=== PATIENT | male | born 2000 | race Caucasian/White ===

== ENCOUNTER 2022-05-22 09:49 | Emergency (ER) | payer BC, SELFPAY ==
[2022-05-22 09:55] VITALS: BP 141/91; PULSE 95; RESP 20; TEMP 37; O2SAT 98; BMI 35.3
--- NOTE | 2022-05-22 10:49 | CRLHL7_ITS ---
For Patients: As a result of the Century Cures Act, medical imaging exams and procedure reports are released immediately into your electronic medical record. You may view this report before your referring provider. If you have questions, please contact your health care provider. INDICATION: RLE PAIN AND REDNESS HISTORY [] TECHNIQUE Ultrasound of the right lower extremity deep veins using bernardo-scale, color Doppler, and spectral Doppler. COMPARISON lower extremity pain and redness [None.] FINDINGS Right: [Common femoral, femoral, and popliteal veins are patent and compressible with normal response to augmentation. Deep femoral vein is patent and compressible.] [Posterior tibial and peroneal veins are patent and compressible with normal response to augmentation.] [Greater saphenous vein is patent and compressible at the junction with the femoral vein.] - Left: [Common femoral vein is patent and compressible with normal response to augmentation.] IMPRESSION [No right lower extremity DVT.] Dictated by: Anamaria Dhaliwal MD @ 05/22/2022 12:43:17 (Electronically Signed)
[2022-05-22 11:44] VITALS: BP 134/86; PULSE 84; RESP 18; O2SAT 99
[2022-05-22 12:09] LABS: Basophils Absolute Auto 0.02 K/uL (0.00-0.30); Basophils Percent Auto 0.4 % (0.0-3.0); Eosinophils Absolute Auto 0.07 K/uL (0.00-0.50); Eosinophils Percent Auto 1.6 % (0.0-7.0); Hematocrit 39.4 % (37.0-53.0); Hemoglobin* 13.5 gm/dL (13.5-17.5); Immature Granulocytes Abs Auto 0.02 K/uL (0.00-0.30); Lymphocytes Percent Auto 19.1 % (20-44); Mean Corpuscular HGB Conc 34 gm/dL (32-36); Mean Corpuscular Hemoglobin 29 pg (26-34); Mean Corpuscular Volume 85 fL (80-100); Monocytes Percent Auto 17.6 % (0.0-11.0); Neutrophils Absolute Auto 2.74 K/uL (1.7-7.0); Neutrophils Percent Auto 60.9 % (42.0-72.0); Platelet Count* 219 K/uL (140-440); RDW Coefficient of Variation % 11.7 % (11.5-15.5); Red Blood Count 4.63 m/uL (4.30-5.90)
[2022-05-22 12:37] LABS: Slide Review Reflex No
[2022-05-22 12:43] LABS: Creatine Kinase* 160 U/L (54-186)
[2022-05-22 12:46] LABS: C Reactive Protein* 0.8 mg/dL (0.5-1.0)
--- NOTE | 2022-05-22 13:46 | ED.GENADULT ---
HPI - General Adult General Date Seen: 05/22/22 Chief complaint: Extremity Pain/Injury, Lower Stated complaint: Sharp pain in calf, back and arm Time Seen by Provider: 05/22/22 10:33 Source: patient History of Present Illness HPI narrative: Patient is a 22-year-old male who presents for evaluation of pain in multiple areas. He says he 1st noticed problems in his right calf which started to bother him 2 days ago. He denies any trauma to the area. He says it started to bother him after he had been working on his vehicle. Then he noted pain in his left calf. Both her bothering him when he walks, although the right is worse than the left. Today he feels like there is some swelling and redness in the right calf as well. Now he also feels like there is an area in his back that hurts and also in his right arm. He feels like all these areas feel about the same and feels like they are connected. Pain is moderate, he has tried some ibuprofen but the not have a lot of relief with that. Found it hard to sleep last night. He went to his chiropractor who ?cracked his back, but that did not seem to help. He denies any systemic complaints such as fevers, chills, nausea or vomiting. He has not had any chest pain or difficulty breathing. He denies any history of DVT or PE. No family history of DVT/PE that he knows of, but he says both grandparents on his dad side are on blood thinners. He does not really know why. He thinks maybe his dad has been on blood thinners as well. Related Data Home Medications Medication Instructions Recorded Confirmed No Known Home Medications 05/22/22 05/22/22 Previous Rx's Medication Instructions Recorded cephalexin 500 mg capsule 500 mg PO QID #28 cap 05/22/22 Allergies Allergy/AdvReac Type Severity Reaction Status Date / Time No Known Drug Allergies Allergy Verified 05/22/22 09:59 Review of Systems Status of ROS: Reports: 10 or more systems reviewed and unremarkable except as noted in History and below [facility] Social History Smoking Status: Never smoker Do you use any of these nicotine containing products: E-Cigarettes and Smokeless Tobacco Second hand tobacco smoke exposure: Yes How often do you have a drink containing alcohol: monthly or less How many standard drinks containing alcohol do you have on a typical day: 3 or 4 How often do you have six or more drinks on one occasion: Less than monthly AUDIT-C Alcohol total score: 3 Non-prescribed substance use: denies use service: No Exam Narrative: Exam Narrative: Vital signs as noted above. In general, an alert, well-appearing patient. Looks comfortable. Breathing easily. Head: Normocephalic, atraumatic. Eyes: Pupils are equal reactive. Extraocular movements are full. Conjunctivae are normal. ENT: Mucous membranes are moist. Throat is normal. Neck: Supple without lymphadenopathy. Heart: Regular rate and rhythm. No murmur or rub. Lungs: Clear bilaterally. No increased work of breathing, crackles or wheezes. Abdomen: Soft and nontender. No organomegaly. Back: Normal in appearance. No erythema or rashes. Nontender to palpation. Extremities: Left lower extremity is normal. On the right, he has an area of mild erythema which is focal in the right calf. There is tenderness in this area. Mild warmth. Suggestion of a little bit of edema in this area although he does not have pretibial edema or edema in the ankle or foot. Distal CMS normal. Upper extremities are both normal. No areas of erythema or tenderness. Neurologic: Patient is alert and oriented to person and place. Speech is fluent. Face is symmetric. Moves all extremities equally. Affect: Normal. Skin: Warm and dry. Well perfused. Const: Vital Signs, click to edit/add: Vital Signs - 24 hr 05/22/22 09:55 05/22/22 11:44 Temperature 98.6 F Pulse Rate [Left P ulse Oximeter] 95 84 Respiratory Rate 20 18 Blood Pressure [Le ft Upper Arm] 141/91 H 134/86 Pulse Oximetry 98 99 Documenting provider has reviewed patient's vital signs: yes Course Course Hospital Course: Reviewed with him that I am not really able to come up with a process that would link the pain in his right upper extremity, back, and bilateral lower extremities at this time. I did do some labs, CBC shows a normal white blood cell count, CRP, CK are normal. I do not find anything really to suggest that these are an acute myositis or other inflammatory process. He does appear to have an area of an acute inflammatory or infectious process in the right calf however. I did do a Doppler which is read by Radiology as negative for DVT. It is possible that this reflects an area of previous trauma/hematoma or gastrocnemius tear, although he really does not report any injury to that area. The other possibility would be an area of developing cellulitis, and I am going to cover him with antibiotics to cover that possibility. I have asked him to use ibuprofen 3 times daily for the next few days. Will cover with Keflex, and see how he does. If he is worsening for any reason, develops worsening redness, swelling or pain, new symptoms such as fever, he should be seen again. Otherwise anticipate gradual improvement over the next week or so. Primary care follow-up if not improving. Vital Signs Vital signs: Initial Vital Signs Temperature 98.6 F 05/22/22 09:55 Temperature Source Temporal Artery Scan 05/22/22 09:55 Pulse Rate 95 05/22/22 09:55 Respiratory Rate 20 05/22/22 09:55 Blood Pressure 141/91 H 05/22/22 09:55 Blood Pressure Mean 107 05/22/22 09:55 Blood Pressure Position Sitting 05/22/22 09:55 Pulse Oximetry 98 05/22/22 09:55 Oxygen Delivery Method 05/22/22 09:55 Vital Signs Temperature 98.6 F 05/22/22 09:55 Pulse Rate 95 05/22/22 09:55 Respiratory Rate 20 05/22/22 09:55 Blood Pressure 141/91 H 05/22/22 09:55 Pulse Oximetry 98 05/22/22 09:55 Temperature 98.6 F 05/22/22 09:55 Pulse Rate 84 05/22/22 11:44 Respiratory Rate 18 05/22/22 11:44 Blood Pressure 134/86 05/22/22 11:44 Pulse Oximetry 99 05/22/22 11:44 Medical Decision Making Lab Data Labs: Lab Results 05/22/22 05/22/22 Range/Units 12:01 12:01 WBC 4.50 (4.50-11.00) K/uL RBC 4.63 (4.30-5.90) m/uL Hgb 13.5 (13.5-17.5) gm/dL Hct 39.4 (37.0-53.0) % MCV 85 (80-100) fL MCH 29 (26-34) pg MCHC 34 (32-36) gm/dL RDW Coeff of Carie 11.7 (11.5-15.5) % Plt Count 219 (140-440) K/uL Neut % (Auto) 60.9 (42.0-72.0) % Lymph % (Auto) 19.1 L (20-44) % [place] % (Auto) 17.6 H (0.0-11.0) % Eos % (Auto) 1.6 (0.0-7.0) % Baso % (Auto) 0.4 (0.0-3.0) % Neut # (Auto) 2.74 (1.7-7.0) K/uL Lymph # (Auto) 0.90 (0.90-2.90) K/uL [place] # (Auto) 0.80 (0.00-0.90) K/UL Eos # (Auto) 0.07 (0.00-0.50) K/uL Baso # (Auto) 0.02 (0.00-0.30) K/uL Abs Immat Gran (auto) 0.02 (0.00-0.30) K/uL Total Creatine Kinase 160 (54-186) U/L C-Reactive Protein 0.8 (0.5-1.0) mg/dL Discharge Plan Discharge Clinical Impression: Cellulitis Patient Disposition: Home, Self-Care Condition: Stable Instructions: Cellulitis (ED) Additional Instructions: Take antibiotic as instructed. Ice, elevate. Ibuprofen, 2 tablets 3 times daily for pain. Take with food. If you have worsening swelling, redness, pain or new symptoms such as fever, return to the emergency department. Prescriptions: New cephalexin 500 mg capsule 500 mg PO QID Qty: 28 0RF No Action No Known Home Medications 0RF Follow Up/Referrals: Provider,Not a Local [Primary Care Provider] - Stand Alone Forms: [employer] Info Instructions
== END 2022-05-22 13:21 | disposition home or self-care (01) ==
PROVIDERS: Emergency Provider Emergency Medicine
DX: L03.818 Cellulitis of other sites (principal)
CPT/HCPCS: 36415; 82550; 85025; 86140; 93971; 99283; 99284

== ENCOUNTER 2022-05-24 07:53 | Outpatient (CLI) | payer BC, SELFPAY ==
[2022-05-24 13:50] LABS: Albumin* 4.5 g/dL (3.3-5.0); Chloride* 107 mmol/L (96-114)
[2022-05-24 13:51] LABS: Potassium* 4.9 mmol/L (3.6-5.1); Sodium* 138 mmol/L (135-149)
[2022-05-24 13:54] LABS: Alanine Aminotransferase* 52 U/L (4-50); Alkaline Phosphatase* 103 U/L (40-150); Aspartate Amino Transferase* 46 U/L (12-35); Bilirubin Total* 0.4 mg/dL (0.1-1.5); Blood Urea Nitrogen* 11 mg/dL (5-24); Calcium* 9.1 mg/dL (8.4-10.6); Carbon Dioxide* 22 mmol/L (20-32); Creatinine* 0.8 mg/dL (0.5-1.5); Estimated Glomerular Filt Rate 128 ml/min; Glucose* 92 mg/dL (60-115); Total Protein* 7.6 g/dL (6.0-8.3)
[2022-05-24 14:01] LABS: C Reactive Protein* < 0.5 mg/dL (0.5-1.0)
[2022-05-26 18:49] LABS: Anaplasma phagocyt PCR Not Detected; Babesia microti by PCR Not Detected; Babesia species by PCR Not Detected; Ehrlichia chaffeensis by PCR Not Detected; Ehrlichia ewingii/canis by PCR Not Detected; Ehrlichia muris-like by PCR Not Detected
== END 2022-05-24 07:54 | disposition home or self-care (01) ==
PROVIDERS: Visit Provider Family Medicine
DX: L03.90 Cellulitis, unspecified (principal); M79.10 Myalgia, unspecified site
CPT/HCPCS: 80053; 86140; 86618; 87798

== ENCOUNTER 2024-06-30 08:18 | Emergency (ER) | payer BC, SELFPAY ==
[2024-06-30 08:20] VITALS: BP 157/104; PULSE 85; RESP 18; TEMP 36.8; O2SAT 99; BMI 35.3
--- NOTE | 2024-06-30 09:02 | ED.CHESTPAIN ---
HPI - Chest Pain General Chief Complaint: Chest Pain Stated Complaint: intermittent chest pains Time Seen by Provider: 06/30/24 08:27 History of Present Illness HPI narrative: This 24-year-old male comes in reporting some intermittent chest discomfort that is been happening over the past 4 5 days. He had similar symptoms a year 2 ago at which time he was using E cigarettes. He quit this at that time and his symptoms resolved. He states that he does not have any nausea, vomiting, lightheadedness, shortness of breath, or diaphoresis. He does not have any exercise intolerance. He does report family history of hypertension, hyperlipidemia, and smoking. He states that he quit chewing tobacco about a year ago and also has quit taking sugar soft drinks. He states that he has an appointment with the primary physician this next week. Related Data Previous Rx's ?Medication ?Instructions ?Recorded cephalexin 500 mg capsule 500 mg PO QID #28 caps 05/22/22 Allergies Allergy/AdvReac Type Severity Reaction Status Date / Time No Known Drug Allergies Allergy Verified 05/24/22 07:36 Review of Systems Status of ROS Reports: 10 or more systems reviewed and unremarkable except as noted in History and below Narrative Constitutional: No fevers, no weight gain or loss. Eyes: No discharge. No vision changes. HENT: No congestion, no sore throat, no ear pain. Cardiovascular: No palpitations. Respiratory: No shortness of breath, no wheezes, no cough. Gastrointestinal: No abdominal pain, no vomiting, no diarrhea. Genitourinary: No dysuria, no hematuria. Musculoskeletal: Normal range of motion. Recurrent mid back pain for which she sees a chiropractor. Skin: No rashes, no pruritis. Neurological: No dizziness, weakness, sensory change, speech change. Endo/Heme/Allergies: No bruising or bleeding. No polydipsia. Pysch: no suicidality, no anxiety, no insomnia. All other systems reviewed and are negative. PFSH [facility] Social History Smoking Status: Never smoker Do you use any of these nicotine containing products: E-Cigarettes and Smokeless Tobacco Second hand tobacco smoke exposure: Yes How often do you have a drink containing alcohol: monthly or less How many standard drinks containing alcohol do you have on a typical day: 3 or 4 How often do you have six or more drinks on one occasion: Less than monthly AUDIT-C Alcohol total score: 3 Non-prescribed substance use: denies use service: No Exam Const Vital Signs, click to edit/add: Vital Signs - 24 hr 06/30/24 08:20 Temperature 98.3 F Pulse Rate [Right Pulse Oximeter] 85 Respiratory Rate 18 Blood Pressure [Right Upper Arm] 157/104 H Pulse Oximetry 99 Oxygen Delivery Method Room Air Course Vital Signs Vital signs: Initial Vital Signs Temperature 98.3 F 06/30/24 08:20 Temperature Source Temporal Artery Scan 06/30/24 08:20 Pulse Rate 85 06/30/24 08:20 Respiratory Rate 18 06/30/24 08:20 Blood Pressure 157/104 H 06/30/24 08:20 Blood Pressure Mean 121 H 06/30/24 08:20 Blood Pressure Position Sitting 06/30/24 08:20 Pulse Oximetry 99 06/30/24 08:20 Oxygen Delivery Method Room Air 06/30/24 08:20 Vital Signs Temperature 98.3 F 06/30/24 08:20 Pulse Rate 85 06/30/24 08:20 Respiratory Rate 18 06/30/24 08:20 Blood Pressure 157/104 H 06/30/24 08:20 Pulse Oximetry 99 06/30/24 08:20 Oxygen Delivery Method Room Air 06/30/24 08:20 Temperature 98.3 F 06/30/24 08:20 Pulse Rate 85 06/30/24 08:20 Respiratory Rate 18 06/30/24 08:20 Blood Pressure 157/104 H 06/30/24 08:20 Pulse Oximetry 99 06/30/24 08:20 Oxygen Delivery Method Room Air 06/30/24 08:20 MDM - Chest Pain MDM Narrative Medical decision making narrative: This patient comes in reporting intermittent chest discomfort that is not exertional. He personally does not have any major cardiac risk factors however he did quit using chewing tobacco about a year ago. He does not have exertional symptoms. His EKG shows normal sinus rhythm without any ST or T-wave abnormalities. I did discuss lab and imaging options with the patient who declined these at this time and stated that he has a follow-up appointment with his primary physician this coming week. His symptoms do not appear to be from a cardiac or pulmonary source. More likely it is chest wall pain perhaps emanating from his back or some reflux symptoms. I did recommend using a proton pump inhibitor as this may bring some relief. Discharge Plan Discharge Clinical Impression: Atypical chest pain Patient Disposition: Home, Self-Care Condition: Stable Additional Instructions: Follow-up with primary MD as scheduled. Consider using Prilosec, Prevacid, or Nexium as directed. Return if worsening. Prescriptions: No Action cephalexin 500 mg capsule 500 mg PO QID Qty: 28 0RF Follow Up/Referrals: Provider,Not a Local [Primary Care Provider] - Stand Alone Forms: [employer] Info Instructions
== END 2024-06-30 09:23 | disposition home or self-care (01) ==
LOC: ED 09:21
PROVIDERS: Emergency Provider Emergency Medicine Emergency Medical Services
DX: R07.9 Chest pain, unspecified (principal)
CPT/HCPCS: 93005; 99284

== ENCOUNTER 2024-07-02 16:31 | Emergency (ER) | payer BC, SELFPAY ==
[2024-07-02 16:37] VITALS: BP 149/81; PULSE 93; RESP 16; TEMP 37.2; O2SAT 98; BMI 35.3
--- NOTE | 2024-07-02 16:58 | CRLHL7_ITS ---
For Patients: As a result of the Century Cures Act, medical imaging exams and procedure reports are released immediately into your electronic medical record. You may view this report before your referring provider. If you have questions, please contact your health care provider. Indication: Chest pain Technique: Chest 2 views Comparison: Chest x-ray 08/06/2011 Findings/Impression: Cardiovascular and mediastinum: Heart size and vasculature are normal in caliber and appearance. Mediastinum is within normal limits. Lungs and pleural spaces: Lungs are clear. No sign of infiltrate or mass. No sign of pleural effusion. No pneumothorax. Bones and soft tissues: No significant findings. Dictated by Navid Weiss MD @ 07/04/2024 12:38:03 PM (Electronically Signed)
[2024-07-02 17:12] LABS: Basophils Absolute Auto 0.05 K/uL (0.00-0.30); Basophils Percent Auto 0.7 % (0.0-3.0); Eosinophils Absolute Auto 0.12 K/uL (0.00-0.50); Eosinophils Percent Auto 1.6 % (0.0-7.0); Hematocrit 43.7 % (37.0-53.0); Hemoglobin* 14.9 gm/dL (13.5-17.5); Immature Granulocytes Abs Auto 0.07 K/uL (0.00-0.30); Immature Granulocytes Pct Auto 0.9 %; Lymphocytes Percent Auto 31.2 % (20-44); Mean Corpuscular HGB Conc 34 gm/dL (32-36); Mean Corpuscular Hemoglobin 29 pg (26-34); Mean Corpuscular Volume 85 fL (80-100); Monocytes Percent Auto 6.1 % (0.0-11.0); Neutrophils Absolute Auto 4.38 K/uL (1.7-7.0); Neutrophils Percent Auto 59.5 % (42.0-72.0); Platelet Count* 268 K/uL (140-440); RDW Coefficient of Variation % 11.7 % (11.5-15.5); Red Blood Count 5.15 m/uL (4.30-5.90); White Blood Count* 7.37 K/uL (4.50-11.00)
[2024-07-02 17:16] LABS: Slide Review Reflex No
[2024-07-02 17:24] LABS: Chloride* 105 mmol/L (96-114); Potassium* 4.1 mmol/L (3.6-5.1); Sodium* 137 mmol/L (135-149)
[2024-07-02 17:27] LABS: Anion Gap 9 mEq/L (7-15); Blood Urea Nitrogen* 15 mg/dL (5-24); Carbon Dioxide* 23 mmol/L (20-32); Creatinine* 0.9 mg/dL (0.5-1.5); Est. Creatinine Clearance* 137.72; Estimated Glomerular Filt Rate 122 ml/min
[2024-07-02 17:28] LABS: Glucose* 127 mg/dL (60-115)
--- NOTE | 2024-07-02 17:30 | ED_ITS ---
HPI - Chest Pain General Chief Complaint: Chest Pain Stated Complaint: Chest pain, lightheaded Time Seen by Provider: 07/02/24 16:49 History of Present Illness HPI narrative: Patient is a 24-year-old gentleman who presents with intermittent chest pain and shortness of breath. The symptoms been present off and on for last week. He was seen 2 days ago and had unremarkable EKG knee continues have a normal EKG today. Patient has had no neurological symptoms no change in cognition no a bdominal pain no changes bowel or bladder no cough for persistent shortness of breath. Related Data Home Medications ?Medication ?Instructions ?Recorded ?Confirmed omeprazole 20 mg capsule,delayed 20 mg PO DAILY 07/02/24 07/02/24 release Allergies Allergy/AdvReac Type Severity Reaction Status Date / Time No Known Drug Allergies Allergy Verified 05/24/22 07:36 Review of Systems Status of ROS Reports: 10 or more systems reviewed and unremarkable except as noted in History and below PFSH PFSH Social History Smoking Status: Never smoker Do you use any of these nicotine containing products: E-Cigarettes and Smokeless Tobacco Second hand tobacco smoke exposure: Yes How often do you have a drink containing alcohol: monthly or less How many standard drinks containing alcohol do you have on a typical day: 3 or 4 How often do you have six or more drinks on one occasion: Less than monthly AUDIT-C Alcohol total score: 3 Non-prescribed substance use: denies use service: No Exam Narrative Exam Narrative: EXAM GENERAL: Patient appears comfortable and well. EYES: No scleral icterus. LYMPH: No supraclavicular or cervical lymphadenopathy. SKIN: Visible skin seen during exam normal or with benign process only. EXT: No dependent lower extremity pedal edema. HEART: Regular rate and rhythm with no murmurs, rubs, or gallops. LUNGS: Clear to auscultation bilaterally with no crackles or wheezes. ABD: Soft, non tender, non distended. PSYCH: Good eye contact, speech is not pressured. Const Vital Signs, click to edit/add: Vital Signs - 24 hr 07/02/24 16:37 Temperature 99.0 F Pulse Rate [Pulse Oximeter] 93 Respiratory Rate 16 Blood Pressure [Right Upper Arm] 149/81 H Pulse Oximetry 98 Oxygen Delivery Method Room Air Course Course ED Course: Patient seen examined D-dimer troponin CBC basic metabolic panel chest x-ray ordered. EKG negative upon my review. Vital Signs Vital signs: Initial Vital Signs Temperature 99.0 F 07/02/24 16:37 Temperature Source Temporal Artery Scan 07/02/24 16:37 Pulse Rate 93 07/02/24 16:37 Respiratory Rate 16 07/02/24 16:37 Blood Pressure 149/81 H 07/02/24 16:37 Blood Pressure Mean 103 07/02/24 16:37 Blood Pressure Position Sitting 07/02/24 16:37 Pulse Oximetry 98 07/02/24 16:37 Oxygen Delivery Method Room Air 07/02/24 16:37 Vital Signs Temperature 99.0 F 07/02/24 16:37 Pulse Rate 93 07/02/24 16:37 Respiratory Rate 16 07/02/24 16:37 Blood Pressure 149/81 H 07/02/24 16:37 Pulse Oximetry 98 07/02/24 16:37 Oxygen Delivery Method Room Air 07/02/24 16:37 Temperature 99.0 F 07/02/24 16:37 Pulse Rate 93 07/02/24 16:37 Respiratory Rate 16 07/02/24 16:37 Blood Pressure 149/81 H 07/02/24 16:37 Pulse Oximetry 98 07/02/24 16:37 Oxygen Delivery Method Room Air 07/02/24 16:37 MDM - Chest Pain MDM Narrative Medical decision making narrative: Patient is a 24-year-old gentleman who presents with persistent shortness of breath and chest pressure. Symptoms have been present for the last week. He was seen 2 days ago EKG was unremarkable was sent home. Tonight his EKG remains normal. He has a negative troponin negative D-dimer unremarkable CBC electrolytes. Patient also has a negative chest x-ray. He does sound like he is having some mild intermittent reactive airway disease I did discharge him home with inhaler to use on a p.r.n. basis with worsening symptoms. He has no major symptoms at this current time. He does have primary care scheduled follow-up. Differential diagnosis includes but not limited to asthma or reactive airway disease pneumonia bronchitis unstable angina acute myocardial infarction pneumothorax pleural effusion. Lab Data Labs: Lab Results 07/02/24 Range/Units 17:07 WBC 7.37 (4.50-11.00) K/uL RBC 5.15 (4.30-5.90) m/uL Hgb 14.9 (13.5-17.5) gm/dL Hct 43.7 (37.0-53.0) % MCV 85 (80-100) fL MCH 29 (26-34) pg MCHC 34 (32-36) gm/dL RDW Coeff of Carie 11.7 (11.5-15.5) % Plt Count 268 (140-440) K/uL Neut % (Auto) 59.5 (42.0-72.0) % Lymph % (Auto) 31.2 (20-44) % [place] % (Auto) 6.1 (0.0-11.0) % Eos % (Auto) 1.6 (0.0-7.0) % Baso % (Auto) 0.7 (0.0-3.0) % Neut # (Auto) 4.38 (1.7-7.0) K/uL Lymph # (Auto) 2.30 (0.90-2.90) K/uL [place] # (Auto) 0.40 (0.00-0.90) K/UL Eos # (Auto) 0.12 (0.00-0.50) K/uL Baso # (Auto) 0.05 (0.00-0.30) K/uL Abs Immat Gran (auto) 0.07 (0.00-0.30) K/uL Imm/Tot Granulo (auto) 0.9 % D-Dimer Quant (PE/DVT) 0.19 (0.00-0.50) ug/ml Sodium 137 (135-149) mmol/L Potassium 4.1 (3.6-5.1) mmol/L Chloride 105 (96-114) mmol/L Carbon Dioxide 23 (20-32) mmol/L Anion Gap 9 (7-15) mEq/L BUN 15 (5-24) mg/dL Creatinine 0.9 (0.5-1.5) mg/dL Estimated Creat Clear 137.72 Estimated GFR 122 ml/min Glucose 127 H (60-115) mg/dL Calcium 9.0 (8.4-10.6) mg/dL Troponin I < 0.01 L (0.01-0.04) ng/mL Discharge Plan Discharge Clinical Impression: Breath shortness Patient Disposition: Home, Self-Care Condition: Stable Instructions: Shortness of Breath (ED) Additional Instructions: Albuterol as directed Follow-up with your doctor as discussed. Activity Level: No Restrictions Discharge Diet: Regular Prescriptions: No Action omeprazole 20 mg capsule,delayed release(DR/EC) 20 mg PO DAILY Follow Up/Referrals: BALJEET RANDOLPH DO [Primary Care Provider] - Stand Alone Forms: [employer] Info Instructions
[2024-07-02 17:33] LABS: D Dimer Quantitative* 0.19 ug/ml (0.00-0.50)
[2024-07-02 17:40] LABS: Troponin I* < 0.01 ng/mL (0.01-0.04)
== END 2024-07-02 18:16 | disposition home or self-care (01) ==
PROVIDERS: Emergency Provider Internal Medicine; PCP Student in an Organized Health Care Education/Training Program
DX: R06.02 Shortness of breath (principal)
CPT/HCPCS: 36415; 71046; 80048; 84484; 85025; 85379; 93005; 99283; 99284; 99285